=== PATIENT | male | born 1995 | race Caucasian/White ===

== ENCOUNTER 2024-10-08 15:55 | Emergency (ER) | payer OTHER, SELFPAY ==
[2024-10-08 16:14] VITALS: BP 123/66; PULSE 56; RESP 18; TEMP 36.6; O2SAT 98; BMI 23.5
--- NOTE | 2024-10-08 18:52 | ED.EYEPROB ---
HPI - Eye Problem General Chief complaint: Eye Problems Stated complaint: sprayed in eyes w/ chemicals Time Seen by Provider: 10/08/24 18:45 History of Present Illness HPI Narrative: This 29-year-old male comes in with chemical splashing into his eyes at work prior to arrival. He states that it was a top coat for sealing of cabinetry wood. He flushed his eyes for about 10 minutes prior to arrival. He did have some blurry vision but is not in much discomfort. By the time I was able to evaluate him he has absolutely no symptoms of discomfort and is eyes appear normal. He does not report any other foreign object in this encounter. Related Data Home Medications ?Medication ?Instructions ?Recorded ?Confirmed dextroamphetamine-amphetamine ER 20 mg PO BID 10/08/24 10/08/24 20 mg 24hr capsule,extend release (Adderall XR) lamotrigine 150 mg tablet 150 mg PO BID 10/08/24 10/08/24 (Lamictal) levetiracetam 500 mg tablet 500 mg PO BID 10/08/24 10/08/24 (Keppra) Allergies Allergy/AdvReac Type Severity Reaction Status Date / Time No Known Drug Allergies Allergy Verified 10/08/24 16:21 Review of Systems Status of ROS: Reports: 10 or more systems reviewed and unremarkable except as noted in History and below Narrative: Constitutional: No fevers, no weight gain or loss. Eyes: No discharge. Temporary blurry vision that is now resolved. HENT: No congestion, no sore throat, no ear pain. Cardiovascular: No chest pain, no palpitations. Respiratory: No shortness of breath, no wheezes, no cough. Gastrointestinal: No abdominal pain, no vomiting, no diarrhea. Genitourinary: No dysuria, no hematuria. Musculoskeletal: Normal range of motion. Skin: No rashes, no pruritis. Neurological: No dizziness, weakness, sensory change, speech change. Endo/Heme/Allergies: No bruising or bleeding. No polydipsia. Pysch: no suicidality, no anxiety, no insomnia. All other systems reviewed and are negative. Exam Narrative: Exam Narrative: Constitutional: Well-developed, well-nourished, no acute distress. HEENT: Normocephalic, atraumatic. Eyes appear normal with no sign of redness or irritation. Neck: Normal range of motion. Nontender. Supple. Heart: Intact distal pulses. Lungs: No chest discomfort. No wheezes, rhonchi, or rales. Abdomen: Nontender. Back: Normal range of motion. Extremities: Normal range of motion. No injury. Skin: Intact. No rash. Warm. No erythema or pallor. Neurologic: No altered sensation. No weakness. Alert and oriented. Psychiatric: No suicidality. No anxiety or depression. No insomnia. Nursing notes and vitals signs are reviewed. Const: Vital Signs, click to edit/add: Vital Signs - 24 hr 10/08/24 16:14 Temperature 97.9 F Pulse Rate [Pulse Oximeter] 56 L Respiratory Rate 18 Blood Pressure [Ri ght Upper Arm] 123/66 Pulse Oximetry 98 Oxygen Delivery Me thod Room Air Course Vital Signs Vital signs: Initial Vital Signs Temperature 97.9 F 10/08/24 16:14 Temperature Source Temporal Artery Scan 10/08/24 16:14 Pulse Rate 56 L 10/08/24 16:14 Respiratory Rate 18 10/08/24 16:14 Blood Pressure 123/66 10/08/24 16:14 Blood Pressure Mean 85 10/08/24 16:14 Blood Pressure Position Sitting 10/08/24 16:14 Pulse Oximetry 98 10/08/24 16:14 Oxygen Delivery Method Room Air 10/08/24 16:14 Vital Signs Temperature 97.9 F 10/08/24 16:14 Pulse Rate 56 L 10/08/24 16:14 Respiratory Rate 18 10/08/24 16:14 Blood Pressure 123/66 10/08/24 16:14 Pulse Oximetry 98 10/08/24 16:14 Oxygen Delivery Method Room Air 10/08/24 16:14 Temperature 97.9 F 10/08/24 16:14 Pulse Rate 56 L 10/08/24 16:14 Respiratory Rate 18 10/08/24 16:14 Blood Pressure 123/66 10/08/24 16:14 Pulse Oximetry 98 10/08/24 16:14 Oxygen Delivery Method Room Air 10/08/24 16:14 Discharge Plan Discharge Clinical Impression: Chemical exposure of eye Patient Disposition: Home, Self-Care Additional Instructions: Okay to resume normal activities. Use [id number] medicines as needed and directed. Follow up with MD as needed. Prescriptions: No Action levetiracetam [Keppra] 500 mg tablet 500 mg PO BID lamotrigine [Lamictal] 150 mg tablet 150 mg PO BID dextroamphetamine-amphetamine [Adderall XR] 20 mg capsule,extended release 24hr 20 mg PO BID Follow Up/Referrals: Provider,Not a Local [Primary Care Provider] - Stand Alone Forms: [employer] Info Instructions
--- OUTSIDE RECORDS SUMMARY | 2024-10-08 19:43 | XMS_ITS | Clinical Summary ---
Author Organization [facility] [facility] Address [place], [place] [address] Care Team Providers Care Stockroom Inventory Clerk Name Role Phone Trung Morgan MD Primary Care Provider Allergies No known active allergies Medications levETIRAcetam (KEPPRA) 500 mg tabletIndication s:Seizure disorder (HC) TAKE 2 TABLETS BY MOUTH TWO TIMES DAILY. 120 Tablet 09/13/19 25 Active lamoTRIgine 150 mg tabletIndication s:Seizure disorder (HC) TAKE 1 TABLET BY MOUTH TWO TIMES DAILY. 60 Tablet 09/13/19 25 Active dextroamphetamin e-amphetamine (ADDERALL) 20 mg tabletIndication s:Attention deficit hyperactivity disorder (ADHD), unspecified ADHD type Take 1 Tablet (20 mg) by mouth 2 times daily at 7 AM and Noon. 60 Tablet 09/18/19 25 Active levETIRAcetam (Keppra) 500 mg tabletIndication s:Seizure disorder (HC) Take 2 Tablets (1,000 mg) by mouth two times daily. 360 Tablet 1 03/20/20 24 025 Discontinued lamoTRIgine (LAMICTAL) 150 mg tabletIndication s:Seizure disorder (HC) Take 1 Tablet (150 mg) by mouth two times daily. 180 Tablet 1 03/20/20 24 025 Discontinued dextroamphetamin e-amphetamine (ADDERALL) 20 mg tabletIndication s:Attention deficit hyperactivity disorder (ADHD), unspecified ADHD type TAKE 1 TABLET (20 MG) BY MOUTH 2 TIMES DAILY AT 7 MORNING AND NOON. EFFECTIVE 06/17/2024 60 Tablet 08/13/20 24 025 Discontinued dextroamphetamin e-amphetamine (ADDERALL) 20 mg tabletIndication s:Attention deficit hyperactivity disorder (ADHD), unspecified ADHD type TAKE 1 TABLET (20 MG) BY MOUTH 2 TIMES DAILY AT 7 A.M. AND NOON . EFFECTIVE 06/17/2024 60 Tablet 09/13/19 25 025 Discontinued(R eorder (E-cancel not sent)) Active Problems Problem Noted Date Diagnosed Date Left carpal tunnel syndrome 08/12/2019 S/P carpal tunnel release 07/01/2019 S/P cubital tunnel release 07/01/2019 Cubital tunnel syndrome on right 05/13/2019 Carpal tunnel syndrome of right wrist 12/17/2018 Right wrist pain 12/17/2018 Anxiety 08/12/2018 Bilateral carpal tunnel syndrome 06/10/2018 Bilateral wrist pain 04/08/2018 Numbness and tingling 04/08/2018 Controlled substance agreeme nt signed 09/11/2017 Compliance urine ordered 09/11/2017 09/11/2017 ADHD (attention deficit hyperactivity disorder) 08/18/2011 Seizure 04/23/2011 Cubital tunnel syndrome on left Encounters Date Type Department Care Team Description 10/08/[address] [phone] Trung Morgan MD Refill Request (Levetiracetam, Lamotrigine) 09/18/2024 2:50 PM DENTAL CERAMIST Office Visit [address] [phone] Trung Morgan MD Medication Management 09/18/2024 Travel 09/08/[address] [phone] Trung Moragn MD Refill Request (Levetiracetam, Lamotrigine, Dextroamphetamine-amp hetamine) 08/13/[address] [place] [address] Trung Morgan MD Refill Request (Dextroamphetamine-am phetamine) from Last 3 Months Immunizations Name Administration Dates Next Due DTP 12/21/1996, 6,1995,07/17 DTP-HIB 1995 DTaP 03/29/2008,05/23/2000 HIB PRP-D (ProHIBIT) 09/14/1996,1995,07/17 HIB PRP-T (ActHIB,Hiberix) 09/14/1996,,1995,07/17 HPV 9 (Gardasil 9) 07/11/2015,03/17/2015 Hepatitis A (Peds) 03/01/2014,04/23/2011 Hepatitis B (Peds) 1995,1995, 995 Hepatitis B, Unspecified 1995,1995,0 1995 Hib Conjugate, Unspecified 09/14/1996,,1995,07/17 Human Papilloma Virus Vaccine 03/01/2014 Inactivated Polio Vaccine 04/23/2011,05/23/2000 Influenza A (H1N1), Inactivated 09/08/2009 Influenza A (H1N1), Inactiva benjamin (Age >=3 Years) 09/08/2009 Influenza Virus, Unspecified 09/08/2009 Influenza, IIV3 (Age 6-35 mos) 08/16/2011,2008 Influenza, IIV3 (Age >=3 years) 09/19/2012,08/16,09/08/2009 Influenza, IIV4 07/03/2018,07/11/2015,08/03/2014 MMR 03/29/2008,09/14/1996 Meningococcal Vaccine (Menactra) 03/01/2014 Oral Polio Vaccine 12/21/1996, 6,1995,07/17 Tdap 01/28/2018,03/29/2008 Varicella Vaccine 04/23/2011,12/21/1996 Family History Medical History Relation Name Comments Deep vein thrombosis Father Anesthesia Problem No Family History Relation Name Status Comments Father Alive Mother Alive Social History Tobacco Use Types Packs/Day Years Used Date Smoking Tobacco: Never Smokeless Tobacco: Never Tobacco Cessation:Counseling Given: Yes Alcohol Use Standard Drinks/Week Comments Yes 2 (1 standard drink = 0.6 oz pur e alcohol) Social [facility] Utilities Answer Date Recorded Do you have trouble paying f or utilities (for example, heat, electricity, water, phone)? Yes 09/20/2023 PHQ-2 Answer Date Recorded PHQ-2 TOTAL SCORE 0 09/18/2024 Social Connections Answer Date Recorded Do you often feel lonely or isolated from those around you? 0 09/20/2023 Financial Resource Strain Answer Date R ecorded Difficulty of Paying Living Expenses 3 09/20/2023 Difficulty of Paying Living Expenses Not on file 09/20/2023 Food Insecurity Answer Date Recorded Do you worry your food will run out before you are able to buy more? 1 09/20/2023 Transportation Needs Answer Date Record ed Does lack of transportation keep you from medica l appointments? 1 09/20/2023 Does lack of transportation keep you from work, meetings or getting things that you need? 1 09/20/2023 Housing Stability Answer Date Recorded What is your housing situation today? 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 Not on file Not on file Obstetrics History Last Filed Vital Signs Vital Sign Reading Time Taken Comments Blood Pressure 128/72 09/18/2024 2:51 PM DENTAL CERAMIST Pulse 76 09/18/2024 2:51 PM DENTAL CERAMIST Temperature 37.1 C (98.8 F) 05/24/2022 8:45 AM CDT Respiratory Rate 16 09/18/2024 2:51 PM DENTAL CERAMIST Oxygen Saturation 97% 03/22/2023 2:11 PM CDT Inhaled Oxygen Concentration - - Weight 71.2 kg (157 lb) 09/18/2024 2:51 PM DENTAL CERAMIST Height 168.9 cm (5' 6.5) 03/20/2024 2:56 PM CDT Body Mass Index 24.96 03/20/2024 2:56 PM CDT Plan of Treatment Health Maintenance Due Date Last Done Comments HIV for age 15-65 2010 Hepatitis C screening for age 18-79 2013 COVID-19 vaccine series (2023- season) 2024 Influenza for age 9-49 05/10/2024 8, 07/11/2015, 08/03/2014, Additional history exists BMI (ht and wt on same day) for age 18+ 03/20/2025 03/20/2024, 03/22/2023, 07/31/2021, Additional history exists Depression screening for age 12+ 09/18/2025 09/18/2024, 09/20/2023, 05/24/2022, Additional history exists Tetanus booster 01/29/2028 01/28/2018, 03/29/2008 Tdap Completed 01/28/2018, 03/29/2008 Pneumococcal series for age 6-49 Aged Out No longer eligible based on patient's age to complete this topic Insurance [employer] COMP [address]T [address] [facility] [place] [address] [facility] Advance Directives * Full Code (Latest Code Status on File) Date Activated Date Inactivated Comments 09/28/2019 7:18 AM 09/28/2019 3:45 PM * Full Code Date Activated Date Inactivated Comments 06/15/2019 8:03 AM 06/15/2019 2:03 PM Question Answer Comments Code Status Discussion: Discussed Care Teams Stockroom Inventory Clerk Relationship Specialty Start Date End Date Trung Morgan MD [address] [place] [address] PCP - General Family Practice 07/16/16
== END 2024-10-08 19:56 | disposition home or self-care (01) ==
LOC: ED 19:41
PROVIDERS: Emergency Provider Emergency Medicine Emergency Medical Services
DX: H57.89 Other specified disorders of eye and adnexa (principal); T65.91XA Toxic effect of unspecified substance, accidental (unintentional), initial encounter
CPT/HCPCS: 99283; 99284

== ENCOUNTER 2024-11-20 04:38 | Emergency (ER) | payer OTHER, SELFPAY ==
[2024-11-20 04:41] VITALS: BP 128/82; PULSE 85; RESP 18; TEMP 36.9; O2SAT 99; BMI 23.5
--- OUTSIDE RECORDS SUMMARY | 2024-11-20 04:41 | XMS_ITS | Clinical Summary ---
Author Organization [facility] Address [facility] [place] [address] Care Team Providers Care Lock Installer Name Role Phone Trung Morgan MD Primary Care Provider Allergies No known active allergies Medications levETIRAcetam (KEPPRA) 500 mg tabletIndications :Seizure disorder (HC) TAKE 2 TABLETS BY MOUTH TWO TIMES DAILY. 360 Tablet 10/09/19 25 Active lamoTRIgine 150 mg tabletIndications :Seizure disorder (HC) TAKE 1 TABLET BY MOUTH TWO TIMES DAILY. 180 Tablet 10/09/19 25 Active dextroamphetamine -amphetamine (ADDERALL) 20 mg tabletIndications :Attention deficit hyperactivity disorder (ADHD), unspecified ADHD type TAKE 1 TABLET (20 MG) BY MOUTH 2 TIMES DAILY AT 7 AM. AND NOON. 60 Tablet 11/03/19 25 Active dextroamphetamine -amphetamine (ADDERALL) 20 mg tabletIndications :Attention deficit hyperactivity disorder (ADHD), unspecified ADHD type Take 1 Tablet (20 mg) by mouth 2 times daily at 7 AM and Noon. 60 Tablet 09/18/19 25 025 Discontinued Active Problems Problem Noted Date Diagnosed Date [...] Encounters Date Type Department Care Team Description 11/03/[address] [phone] Trung Morgan MD Refill Request (Dextroamphetamine-am phetamine) 10/08/[address] [phone] Trung Morgan MD Refill Request (Levetiracetam, Lamotrigine) 09/18/2024 2:50 PM SERVICE OPERATOR Office Visit [address] [phone] Trung Morgan MD Medication Management 09/18/2024 Travel 09/08/[address] [phone] Trung Morgan MD Refill Request (Levetiracetam, Lamotrigine, Dextroamphetamine-amp hetamine) from Last 3 Months Immunizations Immunization Administration Dates Next Due DTP 12/21/1996, 6,1995,07/17 [...] = 0.6 oz pur e alcohol) Social PHQ-2 Answer Date Recorded PHQ-2 TOTAL SCORE [...] is your housing situation today? 1 09/20/2023 Utilities Answer Date Recorded Do you have trouble paying f or utilities (for example, heat, electricity, water, phone)? 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 Not on file Not on file Obstetrics History Last Filed Vital Signs Vital Sign Reading Time Taken Comments Blood Pressure 128/72 09/18/2024 2:51 PM SERVICE OPERATOR Pulse 76 09/18/2024 2:51 PM SERVICE OPERATOR Temperature 37.1 C (98.8 F) 05/24/2022 8:45 AM CDT Respiratory Rate 16 09/18/2024 2:51 PM SERVICE OPERATOR Oxygen Saturation 97% 03/22/2023 2:11 PM CDT Inhaled Oxygen Concentration - - Weight 71.2 kg (157 lb) 09/18/2024 2:51 PM SERVICE OPERATOR Height 168.9 cm (5' 6.5) 03/20/2024 2:56 PM CDT Body Mass Index 24.96 03/20/2024 2:56 PM CDT Plan of Treatment Health Maintenance Due Date Last Done Comments HIV for age 15-65 2010 Hepatitis C screening for age 18-79 2013 COVID-19 vaccine series ( season) 2024 Influenza Vaccine (#1) 2024 8, 07/11/2015, 08/03/2014, Additional history exists BMI (ht and wt on same day) for age 18+ 03/20/2025 03/20/2024, 03/22/2023, 07/31/2021, Additional history exists Depression screening for age 12+ 09/18/2025 09/18/2024, 09/20/2023, 05/24/2022, Additional history exists Tetanus booster 01/29/2028 01/28/2018, 03/29/2008 Tdap Completed 01/28/2018, 03/29/2008 Pneumococcal series for age 6-49 Aged Out No longer eligible based on patient's age to complete this topic Insurance [employer] [facility] Member Subscriber Plan / Payer (Ef fective 2020-Present) Name:Tavon Shipman Relation to Subscriber:Employee Name:HERBER Admittor MARY CARMEN Date of :2000 (Home) Address: [address] [place] [address] Payer ID:Not on file Group ID:Not on file Type:Not on file Address: [address] [address] [place] [address] Advance Directives * Full Code (Latest Code Status on File) Date Activated Date Inactivated Comments 09/28/2019 7:18 AM 09/28/2019 3:45 PM * Full Code Date Activated Date Inactivated Comments 06/15/2019 8:03 AM 06/15/2019 2:03 PM Question Answer Comments Code Status Discussion: Discussed Care Teams Lock Installer Relationship Specialty Start Date End Date Trung Morgan MD [address] [facility] [place] [address] PCP - General Family Practice 07/16/16
--- NOTE | 2024-11-20 05:05 | ED.EYEPROB ---
HPI - Eye Problem General Date Seen: 11/20/24 Chief complaint: Eye Problems Stated complaint: Foreign body right eye Time Seen by Provider: 11/20/24 04:46 Source: patient Mode of arrival: ambulatory Limitations: no limitations History of Present Illness HPI Narrative: Patient is a 29-year-old male who comes in after his [place] scratched his right eye. The eye would not stop watering and the pain was severe. There was no bleeding. Last tetanus was 2018. There has not been any drainage from the eye. The injury occurred about 2 hours ago. Related Data Home Medications ?Medication ?Instructions ?Recorded ?Confirmed dextroamphetamine-amphetamine ER 20 mg PO BID 10/08/24 11/20/24 20 mg 24hr capsule,extend release (Adderall XR) lamotrigine 150 mg tablet 150 mg PO BID 10/08/24 11/20/24 (Lamictal) levetiracetam 500 mg tablet 500 mg PO BID 10/08/24 11/20/24 (Keppra) Allergies Allergy/AdvReac Type Severity Reaction Status Date / Time No Known Drug Allergies Allergy Verified 11/20/24 04:43 Review of Systems Narrative: Review of systems is outlined above otherwise noted to be negative. 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) Anxiety ?F41.9 - Anxiety disorder, unspecified (ICD-10) Carpal tunnel syndrome on left ?G56.02 - Carpal tunnel syndrome, left upper limb (ICD-10) ADHD (attention deficit hyperactivity disorder) ?F90.9 - Attention-deficit hyperactivity disorder, unspecified type (ICD-10) Seizure disorder ?G40.909 - Epilepsy, unspecified, not intractable, without status epilepticus (ICD-10) Surgical History (Updated 11/20/24 @ 04:54 by Anibal Puente RN) S/P carpal tunnel release ?Z98.890 - Other specified postprocedural states (ICD-10) Social History Smoking Status: Never smoker Second hand tobacco smoke exposure: No How often do you have a drink containing alcohol: never AUDIT-C Alcohol total score: 0 Non-prescribed substance use: denies use Exam Narrative: Exam Narrative: Objective: Vitals noted. He initially can not keep the right eye open due to pain. After tetracaine on able to examine him. There is some mild diffuse redness but no purulent drainage. No corneal foreign body. Fluorescein staining confirms a large corneal abrasion over the inferior portion of the pupil. PERRLA. Extraocular movements are full. Funduscopic exam is normal. No bleeding. Const: Vital Signs, click to edit/add: Vital Signs - 24 hr 11/20/24 04:41 Temperature 98.5 F Pulse Rate [Right Pulse Oximeter] 85 Respiratory Rate 18 Blood Pressure [Ri ght Upper Arm] 128/82 Pulse Oximetry 99 Oxygen Delivery Me thod Room Air Course Course ED Course: Patient seen and examined. Tetracaine was instilled for local anesthesia. Fluorescein was instilled and he has a corneal abrasion over the inferior half of his pupil. No foreign body. No bleeding. Tdap is given. Visual acuity is 20/30 in the left eye and 20/100 in the right eye. Vital Signs Vital signs: Initial Vital Signs Temperature 98.5 F 11/20/24 04:41 Temperature Source Temporal Artery Scan 11/20/24 04:41 Pulse Rate 85 11/20/24 04:41 Respiratory Rate 18 11/20/24 04:41 Blood Pressure 128/82 11/20/24 04:41 Blood Pressure Mean 97 11/20/24 04:41 Blood Pressure Position Sitting 11/20/24 04:41 Pulse Oximetry 99 11/20/24 04:41 Oxygen Delivery Method Room Air 11/20/24 04:41 Vital Signs Temperature 98.5 F 11/20/24 04:41 Pulse Rate 85 11/20/24 04:41 Respiratory Rate 18 11/20/24 04:41 Blood Pressure 128/82 11/20/24 04:41 Pulse Oximetry 99 11/20/24 04:41 Oxygen Delivery Method Room Air 11/20/24 04:41 Temperature 98.5 F 11/20/24 04:41 Pulse Rate 85 11/20/24 04:41 Respiratory Rate 18 11/20/24 04:41 Blood Pressure 128/82 11/20/24 04:41 Pulse Oximetry 99 11/20/24 04:41 Oxygen Delivery Method Room Air 11/20/24 04:41 Discharge Plan Discharge Clinical Impression: Corneal abrasion Patient Disposition: Home, Self-Care Condition: Stable Additional Instructions: Tylenol or ibuprofen for pain. Oxycodone for refractory pain. Gentamicin two drops right eye every 4 hours for the next five days. If your vision is not back to normal by Saturday follow-up with an eye doctor. Prescriptions: No Action levetiracetam [Keppra] 500 mg tablet 500 mg PO BID lamotrigine [Lamictal] 150 mg tablet 150 mg PO BID dextroamphetamine-amphetamine [Adderall XR] 20 mg capsule,extended release 24hr 20 mg PO BID Follow Up/Referrals: Provider,Not a Local [Primary Care Provider] - Stand Alone Forms: [employer] Info Instructions
[2024-11-20] MEDS: TETANUS/DIPHTH/PERTUSSIS 0.5 ML SYRINGE IM (05:11)
[2024-11-20 05:12] VITALS: BP 124/74; PULSE 81; RESP 18; TEMP 36.9; O2SAT 99
[2024-11-20 05:13] VITALS: BP 124/74; PULSE 81; RESP 18; TEMP 36.9
--- OUTSIDE RECORDS SUMMARY | 2024-11-20 05:15 | XMS_ITS | Clinical Summary ---
Author Organization [employer] [facility] Address [facility] [place] [address] Care Team Providers Care Tile Finisher Name Role Phone Trung Morgan MD Primary [...] Type Department Care Team Description 11/03/[address] [phone] Trung Morgan MD Refill Request (Dextroamphetamine-am phetamine) 10/08/[address] [phone] Trung Morgan MD Refill Request (Levetiracetam, Lamotrigine) 09/18/2024 2:50 PM VETERINARY ANATOMIST Office Visit [address] [phone] Trung Morgan MD Medication Management 09/18/2024 Travel 09/08/[address] [phone] Trung Morgan MD Refill Request (Levetiracetam, Lamotrigine, [...] on file Legal Sex Male 5:23 AM VETERINARY ANATOMIST Gender Identity Not on file Sexual Orientation Not on file 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 Not on file Not on file Obstetrics History Last Filed Vital Signs Vital Sign Reading Time Taken Comments Blood Pressure 128/72 09/18/2024 2:51 PM VETERINARY ANATOMIST Pulse 76 09/18/2024 2:51 PM VETERINARY ANATOMIST Temperature 37.1 C (98.8 F) 05/24/2022 8:45 AM CDT Respiratory Rate 16 09/18/2024 2:51 PM VETERINARY ANATOMIST Oxygen Saturation 97% 03/22/2023 2:11 PM CDT Inhaled Oxygen Concentration - - Weight 71.2 kg (157 lb) 09/18/2024 2:51 PM VETERINARY ANATOMIST Height 168.9 cm (5' 6.5) 03/20/2024 2:56 [...] patient's age to complete this topic Insurance [employer] [facility] Advance Directives * Full Code (Latest Code Status on File) Date Activated Date Inactivated Comments 09/28/2019 7:18 AM 09/28/2019 3:45 PM * Full Code Date Activated Date Inactivated Comments 06/15/2019 8:03 AM 06/15/2019 2:03 PM Question Answer Comments Code Status Discussion: Discussed Care Teams Tile Finisher Relationship Specialty Start Date End Date Trung Morgan MD [address] [facility] [place] [address] PCP - General Family Practice 07/16/16
== END 2024-11-20 05:17 | disposition home or self-care (01) ==
LOC: ED 05:14
PROVIDERS: Emergency Provider Family Medicine; PCP Family Medicine
DX: S05.01XA Injury of conjunctiva and corneal abrasion without foreign body, right eye, initial encounter (principal); W54.8XXA Other contact with dog, initial encounter
CPT/HCPCS: 90471; 90715; 99281; 99283; A9270